=== PATIENT | female | born 1990 | race Hispanic/Latino ===

== ENCOUNTER 2016-10-06 06:59 | Emergency (ER) | payer OTHER ==
[~2016-10-06] VITALS: Ht 154.9 cm; Wt 61.2 kg
[2016-10-06 07:20] VITALS: BP 102/66
--- NOTE | 2016-10-06 07:50 | ED CARDIAC/CP/PALPITATIONS ---
History of Present Illness General Chief Complaint: Chest Pain Stated Complaint: CP X FEW WEEKS Source: patient Exam Limitations: no limitations Vital Signs & Intake/Output Vital Signs & Intake/Output Vital Signs Date Time Temp Pulse Resp B/P Pulse O2 O2 Flow FiO2 Ox Delivery Rate 10/06 0807 Room Air Room Air 10/06 0720 97.0 72 18 102/66 100 Room Air Allergies Coded Allergies: No Known Allergies (10/06/16) Reconcile Medications No Known Home Medications Triage Note: PT TO ED FOR CHEST PAIN INTERMITTENTLY X 1 MONTH, REPRODUCIBLE, TENDER TO PALPATION. Triage Nurses Notes Reviewed? yes : No Patient currently breastfeeds: No HPI: Patient presents with intermittent chest pain that she is had for the past month. Patient states the pain will come on suddenly and lasted approximately 1 -2 hours before he goes away. The pain is sharp in nature. The pain is right underneath her left breast and there is no radiation. Patient does not have any aggravating or mitigating factors. There is no shortness of breath. Patient has been promising her that she would get this pain checked out and wanted came again this morning she came into the emergency room for evaluation. Currently the patient is asymptomatic. When the pain comes on she rates it as a 6 out of 10. Past History Travel History Traveled to [place] past 21 day No Medical History Any Pertinent Medical History? 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 No Review of Systems Review of Systems Constitutional: Reports: no symptoms. EENTM: Reports: no symptoms. Respiratory: Reports: no symptoms. Cardiovascular: Reports: see HPI, chest pain. GI: Reports: no symptoms. Genitourinary: Reports: no symptoms. Musculoskeletal: Reports: no symptoms. Skin: Reports: no symptoms. Neurological/Psychological: Reports: no symptoms. Hematologic/Endocrine: Reports: no symptoms. Immunologic/Allergic: Reports: no symptoms. All Other Systems: Reviewed and Negative Physical Exam Physical Exam General Appearance: well developed/nourished, alert, awake, anxious Head: atraumatic, normal appearance Eyes: Bilateral: PERRL, EOMI. Ears, Nose, Throat: normal pharynx, normal ENT inspection, hearing grossly normal Neck: normal inspection, supple, full range of motion, NO JVD Respiratory: normal breath sounds, chest non-tender, no respiratory distress, lungs clear Cardiovascular: regular rate/rhythm, normal peripheral pulses Gastrointestinal: normal bowel sounds, soft, non-tender, no organomegaly Back: normal inspection, normal range of motion Extremities: normal inspection, normal capillary refill, normal range of motion, no edema Neurologic/Psych: no motor/sensory deficits, awake, alert, oriented x 3, normal gait, normal mood/affect Skin: intact, normal color, warm/dry Lymphatic: no anterior cervical angela Core Measures ACS in differential dx? Yes ASA ordered for poss ACS? No-ACS ruled out Severe Sepsis Present: No Septic Shock Present: No Progress Differential Diagnosis: AMI, atrial fibrillation, cholecystitis, costochondritis , hyperthyroid, musculoskeletal pain, myocarditis, pericarditis, pneumonia, pneumothorax, PSVT, pulmonary embolism Plan of Care: Orders Procedure Date/time Status TROPONIN LEVEL 10/06 0749 Complete HUMAN BETA HCG SCREEN 10/06 0749 Complete D-DIMER 10/06 0749 Complete COMPREHENSIVE METABOLIC PANEL 10/06 0749 Complete CBC WITHOUT DIFFERENTIAL 10/06 0749 Complete EKG 10/06 0700 Active Laboratory Tests 10/06/16 0756: Anion Gap 8, Estimated GFR > 60, BUN/Creatinine Ratio 14.3, Glucose 83, Calcium 9.6, Total Bilirubin 0.5, AST 23, ALT 38, Alkaline Phosphatase 47, Troponin I < 0.01, Total Protein 6.6, Albumin 4.0, Globulin 2.6, Albumin/Globulin Ratio 1.5, Total Beta HCG NEGATIVE, D-Dimer < 200, CBC w Diff NO MAN DIFF REQ, RBC 4.89, MCV 83.1, MCH 27.8, RDW 13.9, MPV 8.5, Gran % 44.2, Lymphocytes % 45.5, Monocytes % 7.7, Eosinophils % 2.1, Basophils % 0.5, Absolute Granulocytes 1.9, Absolute Lymphocytes 2.0, Absolute Monocytes 0.3, Absolute Eosinophils 0.1, Absolute Basophils 0, PUBS MCHC 33.5 Initial ED EKG: NSR, no ST T wave changes Comments: Patient walked out of the emergency department prior to labs coming back. Patient is not telling the staff that she was leaving. The patient was called. Patient states that her had an appointment that she had to get home and watch the kids 4. Laboratory results were discussed with the patient. The patient has been given Dr. Calderon office number to follow up with as an outpatient. Patient promises to return for any further pain. Departure Departure Disposition: HOME OR SELF CARE Condition: Stable Clinical Impression Primary Impression: Chest pain, unspecified Qualifiers: Chest pain type: other chest pain Qualified Code: R07.89 - Other chest pain Referrals: PATIENT HAS NO PRIMARY CARE DR (PCP/Family) Departure Forms: Customer Survey General Discharge Information Prescriptions: Current Visit Scripts No Known Home Medications Critical Care Note Critical Care Note Critical Care Time: non-applicable
[2016-10-06 08:22] LABS: ABSOLUTE BASOPHIL COUNT 0 /CUMM (0.0-0.2); ABSOLUTE EOSINOPHIL COUNT 0.1 /CUMM (0.0-0.7); ABSOLUTE GRANULOCYTE CT 1.9 /CUMM (1.4-6.5); ABSOLUTE MONOCYTE COUNT 0.3 /CUMM (0.10-0.60); BASOPHIL % 0.5 % (0.0-2.0); EOSINOPHIL % 2.1 % (0-5); GRANULOCYTE % 44.2 % (42.2-75.2); HEMATOCRIT 40.6 % (37-47); MEAN CORPUSCULAR HGB 27.8 PG (27.0-31.0); MEAN CORPUSCULAR HGB CONC 33.5 G/DL (33.0-37.0); MEAN CORPUSCULAR VOLUME 83.1 FL (81.0-99.0); MEAN PLATELET VOLUME 8.5 FL (7.4-10.4); PLATELET COUNT 234 /CUMM (130-400); RBC DISTRIBUTION WIDTH 13.9 % (11.5-14.5); RED BLOOD CELL CT 4.89 /CUMM (4.20-5.40); WHITE BLOOD CELL COUNT 4.4 /CUMM (4.8-10.8)
== END 2016-10-06 09:39 ==
LOC: ERH 06:59
PROVIDERS: Emergency Medicine
DX: R07.9 Chest pain, unspecified (principal)
CPT/HCPCS: 93005; 93010

== ENCOUNTER 2017-10-19 12:02 | Emergency (ER) | payer SELFPAY ==
[~2017-10-19] VITALS: Ht 154.9 cm; Wt 69.4 kg
--- NOTE | 2017-10-19 12:57 | ED GI/GU/ABDOMINAL COMPLAINT ---
History of Present Illness General Chief Complaint: Abdominal Pain/Flank Pain Stated Complaint: ABD PAIN Source: patient Exam Limitations: no limitations Vital Signs & Intake/Output Vital Signs & Intake/Output Vital Signs Date Time Temp Pulse Resp B/P B/P Pulse O2 O2 Flow FiO2 Mean Ox Delivery Rate 10/19 1519 98.1 75 20 116/74 100 Room Air 10/19 1338 90 20 108/68 98 Room Air 10/19 1205 97.0 92 18 110/73 97 Room Air Room Air Allergies Coded Allergies: No Known Allergies (10/06/16) Reconcile Medications Metronidazole (Flagyl) 500 MG TABLET 1 TAB PO BID VAGINAL INFECTION Triage Note: TRIAGE: 27 Y/O FEMALE PRESENTS C/O 7/10 LOWER ABDOMINAL CRAMPING. YELLOW DISCHARGE, "FUNKY ODOR". REPORTS FEMALE SEXUAL PARTNERS. REPORTS FREQUENT UTIs, BUT NEVER BEFORE ASSOCIATED WITH THIS TYPE OF ODOR. DENIES URIANRY CONCERNS. Triage Nurses Notes Reviewed? yes ? N Is pt currently ? No Onset: Gradual Duration: week(s): (1) Timing: no prior history Quality/Severity: moderate Severity Numbers: 6 Location: suprapubic Radiation: no radiation Activities at Onset: none Prior Abdominal Problems: none Sexually Active: Yes Last Time You Were Sexual: less than 2 months ago Sexual Orientation: Bisexual Use of Protection: No No Modifying Factors: none HPI: Patient is a 27-year-old female presenting to the emergency department complaining of suprapubic abdominal pain, associated vaginal discharge with foul smell things going on for the last 1 week. She is currently sexually active with 2 female partners. No history of symptoms in the past. She reports discharge is thick and white and has a "fishy odor". Denies taking anything help with symptoms. When she pushes on her abdomen the pain is worse. She describes it as sharp and stabbing. She does have aN IUD in place. Denies any vaginal bleeding. Denies any urinary frequency urgency or dysuria. (Ira Prater) Past History Travel History Traveled to [place] past 21 day No Medical History Any Pertinent Medical History? 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 No (Ira Prater) Review of Systems Review of Systems Constitutional: Reports: no symptoms. Comments Review of systems: See HPI, All other systems negative. Constitutional, no chills fever or weight loss HEENT: No visual changes no sore throat no congestion Cardiovascular: No chest pain ,palpitation , orthopnea or ankle swelling Skin, no jaundice no rashes Respiratory: No dyspnea cough sputum or hemoptysis GI: No nausea no vomiting : No dysuria No hematuria Muscle skeletal: no back pain, no neck pain, Neurologic: No numbness no confusion, no headache Psych: No stress anxiety or depression,. Heme/endocrine: No bruising no bleeding no polyuria or polydipsia Immunology: No splenectomy or history of AIDS (Ira Prater) Physical Exam Physical Exam General Appearance: well developed/nourished, no apparent distress, alert, awake , comfortable Gastrointestinal: normal bowel sounds, soft, tenderness Comments: Well-developed well-nourished person in no acute distress HEENT: Atraumatic, normocephalic Neck: Normal inspection Back: Nontender, no CVA tenderness. Cardiovascular: Regular rate and rhythms Respiratory: . No respiratory distress.breath sounds clear to auscultation bilaterally Abdomen: Soft, tender palpation in suprapubic region without rebound or guarding , nondistended, no appreciable organomegaly. Normal bowel sounds. No ascites. No palpable masses. Pelvic: External labia appears within normal range, no masses or lesions identified. Thicker white discharge noted in the vaginal canal and coming from the cervical os. IUD string in place. No palpable masses in the adnexal area bilaterally, no cervical motion tenderness present on exam with bimanual exam. Extremity: No edema Neuro: Alert oriented x3 Skin: No appreciable rash on exposed skin, skin is warm and dry. Psych: Mood and affect is normal, memory and judgment is normal. Core Measures ACS in differential dx? No Sepsis Present: No Sepsis Focused Exam Completed? No (Ira Prater) Progress Differential Diagnosis: sti, BACTERIAL VAGINOSIS, uti, PELVIC INFLAMMATORY DISEASE Plan of Care: Orders Procedure Date/time Status Add-on Test (ER Only) 04/08 1427 Active TRICHOMONAS 10/20 1311 Complete POTASSIUM HYDROXIDE (STEFFEN) 10/20 1311 Complete GENITAL CULTURE 10/20 1311 Active CHLAMYDIA-GC DNA PROBE 10/20 1311 Active URINE 10/20 1311 Complete URINALYSIS 10/20 1311 Complete COMPREHENSIVE METABOLIC PANEL 10/20 1311 Complete CBC WITHOUT DIFFERENTIAL 10/20 1311 Complete Laboratory Tests 10/19/17 1339: Urine Color YEL, Urine Clarity CLEAR, Urine pH 6.5, Ur Specific [place] 1.025, Urine Protein NEG, Urine Ketones NEG, Urine Nitrite NEG, Urine Bilirubin NEG, Urine Urobilinogen 1.0, Ur Leukocyte Esterase NEG, Ur Microscopic EXAM NOT REQUIRED, Urine Hemoglobin NEG, Urine Glucose NEG, Urine Test NEGATIVE 10/19/17 1335: Anion Gap 10, Estimated GFR > 60, BUN/Creatinine Ratio 20.0, Glucose 88, Calcium 8.9, Total Bilirubin 0.4, AST 15, ALT 30, Alkaline Phosphatase 36, Total Protein 6.2 L, Albumin 3.7, Globulin 2.5, Albumin/Globulin Ratio 1.5, CBC w Diff NO MAN DIFF REQ, RBC 4.46, MCV 86.0, MCH 29.0, MCHC 33.7, RDW 13.6, MPV 8.7, Gran % 52.2, Lymphocytes % 36.8, Monocytes % 9.4 H, Eosinophils % 1.3, Basophils % 0.3 , Absolute Granulocytes 3.1, Absolute Lymphocytes 2.2, Absolute Monocytes 0.6, Absolute Eosinophils 0.1, Absolute Basophils 0 Microbiology 10/19 1422 URINE ROUT: GC DNA Probe - RECD 10/19 1422 URINE ROUT: Chlamydia DNA Probe (JOSHUA) - RECD 10/19 1422 GENITAL: STEFFEN Preparation - COMP 10/19 1422 GENITAL: Trichomonas Preparation - COMP 10/19 1422 GENITAL: Genital Culture - RECD 10/19/2017 2:43:13 PM patient refusing imaging of the abdomen at this time. She is informed of the potential harms that a misplaced IUD would be if a perforated the uterus. She understands and is clear to make these decisions. IUD string was in place without cervical motion tenderness and exam. Unlikely perforation of the abdomen is soft not diffusely distended. Labs are unremarkable. Awaiting ulcers to come back. Declines pain medication on arrival. Initial ED EKG: none (Ira Prater) Departure Departure Time of Disposition: 1504 Disposition: HOME OR SELF CARE Condition: Stable Clinical Impression Primary Impression: Vaginitis Qualifiers: Chronicity: acute Qualified Code: N76.0 - Acute vaginitis Referrals: Patient Has No Primary Care Dr (PCP/Family) Chris RHOADES,[place] Additional Instructions: Follow-up with WEAPONS OFFICER in the next 5-7 days, call to make an appointment. Take antibiotics as prescribed. Increase fluids. Take [id number] Motrin or Tylenol as directed for any aches or pains. Return for worsening symptoms or concerns. Departure Forms: Customer Survey General Discharge Information Prescriptions: Current Visit Scripts Metronidazole (Flagyl) 1 TAB PO BID #14 TAB (Ira Prater) PA/SKILLS TRAINER Co-Sign Statement Statement: ED Attending supervision documentation- [] I saw and evaluated the patient. I have also reviewed all the pertinent lab results and diagnostic results. I agree with the findings and the plan of care as documented in the PA's/SKILLS TRAINER's documentation. [X] I have reviewed the ED Record and agree with the PA's/SKILLS TRAINER's documentation. [] Additions or exceptions (if any) to the PAs/SKILLS TRAINER's note and plan are summarized below: [] (Laz RHOADES,Loyd Delgado)
[2017-10-19 13:59] LABS: ABSOLUTE BASOPHIL COUNT 0 /CUMM (0.0-0.2); ABSOLUTE EOSINOPHIL COUNT 0.1 /CUMM (0.0-0.7); ABSOLUTE GRANULOCYTE CT 3.1 /CUMM (1.4-6.5); ABSOLUTE LYMPH COUNT 2.2 /CUMM (1.2-3.4); ABSOLUTE MONOCYTE COUNT 0.6 /CUMM (0.10-0.60); BASOPHIL % 0.3 % (0.0-2.0); EOSINOPHIL % 1.3 % (0-5); GRANULOCYTE % 52.2 % (42.2-75.2); HEMATOCRIT 38.3 % (37-47); MEAN CORPUSCULAR HGB CONC 33.7 G/DL (33.0-37.0); MEAN PLATELET VOLUME 8.7 FL (7.4-10.4); PLATELET COUNT 224 /CUMM (130-400); RBC DISTRIBUTION WIDTH 13.6 % (11.5-14.5); RED BLOOD CELL CT 4.46 /CUMM (4.20-5.40); WHITE BLOOD CELL COUNT 5.9 /CUMM (4.8-10.8)
[2017-10-19] MEDS ORDERED: FLAGYL500 MG PO (15:08)
[2017-10-19 15:19] VITALS: BP 116/74
== END 2017-10-19 15:21 ==
LOC: ERH 12:02
PROVIDERS: Physician Assistant
DX: N76.0 Acute vaginitis (principal)
CPT/HCPCS: 87070; 81003; 81025; 87491; 87591; 96372; J0696